=== PATIENT | female | born 1980 | race Hispanic/Latino ===

== ENCOUNTER 2018-03-20 21:21 | Inpatient (IN) | payer BC ==
[~2018-03-20] VITALS: Ht 167.6 cm; Wt 74.6 kg
[~2018-03-20 21:21] MED LIST: ULTRAM50 MG PO
--- NOTE | 2018-03-21 01:00 | NUR ---
PATIENT'S IV SITE IN LEFT AC APPEARS INFILTRATED. MULTIPLE ATTEMPTS FOR NEW IV SITE BY MYSELF AND ALEXSANDER ESTEVEZ FROM THE ED. SUCCESSFUL SITE IN RIGHT AC IS PAINFUL AND RED, BUT DRAWS BLOOD EASILY AND DOES NOT APPEAR INFILTRATED. MARK ESTEVEZ, VICE PRESIDENT TAX REPOSITIONED IV AND PATIENT REPORTS RELIEF. WARM BLANKET APPLIED TO SITE. PATIENT DENIES ANY PAIN OR NAUSEA. ABD IS SOFT, TENDER IN RLQ WITH PALPATION. BOWEL SOUNDS ACTIVE. PATIENT'S IS IN THE ROOM AND HAS BEEN PROVIDED WITH BEDDING AND ORIENTED TO THE UNIT. PATIENT IS NPO AT THIS TIME. DENIES ANY OTHER NEEDS. CALL LIGHT IN REACH.
--- NOTE | 2018-03-21 03:00 | NUR ---
PATIENT APPEARS TO BE SLEEPING. RR 16. FAMILY IN ROOM. IV INFUSING PER ORDER, SITE WNL.
--- NOTE | 2018-03-21 04:00 | NUR ---
PATIENT UP TO THE BATHROOM. SBA. APPEARS STEADY ON HER FEET. PATIENT BACK TO BED. DENIES PAIN. IV FLUIDS PER ORDER, SITE WNL.
--- NOTE | 2018-03-21 05:00 | NUR ---
PATIENT REPORTS 2/10 AND REQUEST PRN PAIN MEDS. EDUCATED PATIENT ABOUT PAIN SCALE AND PATIENT CHANGED SCORE TO 4/10. PRN DILAUDID PROVIDED. PATIENT DENIES NAUSEA. IV SITE WNL, NO PAIN. FLUIDS INFUSING. CALL LIGHT IN REACH. FAMILY IN ROOM.
--- NOTE | 2018-03-21 06:26 | NUR ---
PATIENT ARRIVED TO THE FLOOR AROUND 0100. PAIN WELL CONTROLLED WITH PRN DILAUDID X1. NO NAUSEA. URINE OUTPUT QS. VS STABLE. IV FLUIDS PER ORDER. FAMILY IN ROOM. PATIENT CALLS APPROPRIATELY. SBA.
--- NOTE | 2018-03-21 07:38 | NUR ---
PT AWAKE, ALERT AND ORIENTED X3. PT REPORTING ABD PAIN IS TOLETABLE AT THIS TIME. PT DENIES NEED TO VOID. PERSONAL SUPPLIES AND CALL LIGHT WITHIN REACH OF PT.
--- NOTE | 2018-03-21 08:44 | NUR ---
PATIENT IN BED RESTING. SHE IS NPO FOR NOW. FAMILY IN ROOM. CALL LIGHT IN REACH. NO FUTHER NEEDS AT THIS TIME.
--- NOTE | 2018-03-21 10:51 | NUR ---
PATIENT DID SHOWER WITH HIBBA CLEANSE FOR SURGERY. SHE REFUSED LINEN CHANGE. PATIENT RESTING RIGHT NOW. CALL LIGHT IN REACH. NO FURTER NEEDS AT THIS TIME.
--- NOTE | 2018-03-21 10:58 | NUR ---
PT AWAKE, SITTING UP IN BED VISITING WITH . PT REPORTS PAIN IS TOLERABLE IN ABD. PERSONAL SUPPLIES AND CALL LIGHT WITHIN REACH OF PT. NO NEEDS AT THIS TIME.
--- NOTE | 2018-03-21 11:05 | NUR ---
MED REC COMPLETE
--- NOTE | 2018-03-21 11:24 | HP ---
[facility] [address], [place] [address] Signed ADMISSION DATE: 03/20/2018 REASON FOR ADMISSION: Acute cholecystitis. HISTORY OF PRESENT ILLNESS: This very pleasant 37-year-old woman is accompanied by her . They have limited East [place]orese and a translating computer device was used (per hospital contract) for our visit. The patient presented to the emergency room last night with complaints of right upper abdominal and right flank pain since about Urban. The patient has a long history of episodic pain of a similar type. The patient and her live in [place], [place] and she works for the [employer] there. She had been seen previously in 2016 for similar complaints and evaluation at that time uncertain to me at this point. Her evaluation in the emergency room showed her likely to have acute cholecystitis. On that basis, a gallbladder ultrasound was performed. The ultrasound showed stones and sludge and borderline gallbladder wall thickening. She was admitted to my service with presumed acute calculous cholecystitis. PAST MEDICAL HISTORY: Unremarkable. She has had four child births, one that . Her last menstrual period was 02/27/2018. She uses alcohol occasionally. She does not smoke. She has had D and C in the past. REVIEW OF SYSTEMS: She denies any shortness of breath or chest pain. Her pain is located in the right upper and epigastric area. She has no diarrhea or constipation. No blood per rectum or hematemesis. PHYSICAL EXAMINATION: GENERAL: A pleasant woman, who is accompanied by her . She does not look systemically toxic. NECK: Shows no thyromegaly or cervical adenopathy. Trachea is midline. CHEST: Clear. HEART: Regular without murmur. ABDOMEN: Nondistended. She does have tenderness in the right upper abdomen and the epigastric area, but no palpable mass. There is no ascites. Electronically Signed By: GABINO ALBARADO MD 03/21/18 1124 PATIENT NAME: TYSON STRICKLAND HISTORY AND PHYSICAL DATE OF : 84 REPORT #: [id number] PHYSICIAN: GABINO ALBARADO MD PCP: MAYUR NICHOLS REPORT IS CONFIDENTIAL AND NOT TO BE RELEASED WITHOUT AUTHORIZATION [facility] [address], [place] [address] Signed LABORATORY STUDIES: Show a negative beta-hCG. Chem profile and CBC are normal at this time. Hematocrit 38.6, platelets 204,000. Urinalysis is normal. IMAGING STUDIES: As described, which include ultrasound showing gallstones, sludge, and mild gallbladder wall thickening. ASSESSMENT: Her clinical an ultrasonographic findings are highly consistent with acute calculous cholecystitis. It sounds as though she has had recurrent bouts of similar such symptoms in the past. I discussed the problem with the patient and her via the interpreting device, although they do understand East [place]orese to reasonably good degree anyway. I have recommended cholecystectomy preferred by laparoscopic approach. The risks of bleeding, infection, bile duct injury, need for open procedure and other unforeseen complications were reviewed via the educational sign language interpreter as well. She understands. Her questions have been answered. MD RALEIGH Lao/JULIETTEL /[id number] cc: Ar Ridley MD Copies: AR RIDLEY MD ~ Electronically Signed By: GABINO ALBARADO MD 03/21/18 1124 PATIENT NAME: TYSON STRICKLAND HISTORY AND PHYSICAL DATE OF : 84 REPORT #: [id number] PHYSICIAN: GABINO ALBARADO MD PCP: MAYUR NICHOLS REPORT IS CONFIDENTIAL AND NOT TO BE RELEASED WITHOUT AUTHORIZATION
--- NOTE | 2018-03-21 12:02 | NUR ---
PT RESTING IN BED, RESP EVEN AND NON LABORED. AT BEDSIDE. PERSONAL SUPPLIES AND CALL LIGHT WITHIN REACH OF PT. NO NEEDS AT THIS TIME.
--- NOTE | 2018-03-21 12:04 | NUR ---
PT LAYING IN BED, BY HER SIDE. PT DOES NOT SPEAK GAMBIAN, TRANSLATES. PLEASANT AND HELPFUL, EXTENDED A BLESSING, WILL FOLLOW NEEDED
--- NOTE | 2018-03-21 14:41 | NUR ---
PT LEFT UNIT TO OR.
--- NOTE | 2018-03-21 18:43 | NUR ---
03/21/18 184 [address] 1837- PT ARRIVES TO PACU ASLEEP ON 6 L O2 VIA MASK. PT RESP EVEN AND UNLABORED. PT REACTIVE TO VERBAL STIMULI, BUT QUICKLY FALLS BACK ASLEEP. PT HAS 4 SURGICAL SITES WITH STERI STRIPS IN PLACE.
--- NOTE | 2018-03-21 19:51 | NUR ---
PT RETURNED TO FLOOR FROM SURGERY, PT DROWSY, WEAK FROM SURGERY, PT NOTED TO BE ACTIVELY VOMITING SMALL AMOUNT OF GREEN EMESIS UPON ARRIVAL. PT UNABLE TO TRANSFER SELF FROM STRETCHER TO BED, PT IN BED, IV FLUIDS INFUSING PER EMAR WNL, PT'S AT BEDSIDE ABLE TO TRANSLATE WITH PT, PT GIVEN PRN NAUSEA MEDICATION PER REQUEST, PT DENIES SIGNIFICANT PAIN AT THIS TIME. COOL WASH CLOTH PROVIDED FOR COMFORT, PT RESTING IN BED, EYES CLOSED, BREATHS EVEN, UNLABORED, VSS, AFEBRILE, ORAL CARE PROVIDED PER PT'S REQUEST NO FURTHER REQUESTS AT THIS TIME, CALL LIGHT WITHIN REACH. FALL PRECAUTIONS IN PLACE. FAMILY REMAINS AT BEDSIDE.
--- NOTE | 2018-03-21 20:41 | NUR ---
HELPED PT TO THE BSC AND BACK TO BED. BEDSIDE TABLE AND CALL [facility] ROOM. IN THE ROOM WITH PT.
--- NOTE | 2018-03-21 22:55 | NUR ---
PATIENT'S 4 ABD LAB SITES LOOK GOOD, STERI-STRIPS INTACT WITH SLIGHT BROWN CRUSTY DRY DRAINAGE AT EACH SITE. PATIENT WAS HAVING SOME SLIGHT NAUSEA AFTER THE FIRST DOSE OF 4MG ZOFRAN WAS GIVEN ALTHOUGH IT HAD IMPROVED, SO ANOTHER 4ML IV ZOFRAN WAS GIVEN AND NAUSEA IS GONE. PATIENT WAS ALSO HAVING 5/10 ABD PAIN AT THE LAP SURGICAL SITES WHICH WAS TOTALLY RELIEVED WITH 5MG/IV MORPHINE. AT BEDSIDE AND PATIENT IS GOING TO TRY AND GET SOME REST SCD'S IN PLACE, CALL LIGHT IN REACH, ICE CHIPS GIVEN, NO OTHER NEEDS AT THIS TIME.
--- NOTE | 2018-03-22 00:33 | NUR ---
PATIENT RESTING QUIETLY ON LEFT SIDE, RESPIRATIONS REAGULAR AND EVEN AT A RATE OF 16. SATS 98% SATS ON PULE OX AND HR=82.
--- NOTE | 2018-03-22 01:09 | NUR ---
HELPED PT TO THE BATHROOM AND BACK TO BED. BEDSIDE TABLE AND CALL LIGHT WITHIN REACH. PT ASKED FOR PAIN MEDS. I INFORMED HER RN MOHINDER.
--- NOTE | 2018-03-22 02:03 | NUR ---
BROUGHT PT TWO CUPS OF JELLO PER HER REQUEST.
--- NOTE | 2018-03-22 02:05 | NUR ---
PATIENT WOKE UP AND WAS HAVING 5/10 ABD PAIN. 5MG IV MORPHINE WAS GIVEN AND PAIN WAS GONE, BUT SHE DID GET A LITTLE NAUSEATED AND WAS GIVEN 8MG OF ZOFRAN IV. NAUSEA WAS GETTING BETTER AND PATIENT ASKED FOR MORE ICE CHIPS AND JELLO WHICH WAS GIVEN.
--- NOTE | 2018-03-22 04:00 | NUR ---
PATIENT RESTING QUIETLY ON HER LEFT SIDE, EYES CLOSED RESPIRATIONS REGULAR AND EVEN, PULSE OX O2 SATS AT98% RA AND HR=80. NO S/S OF DISTRESS OR DISCOMFORT.
--- NOTE | 2018-03-22 04:22 | NUR ---
IV PUMP BEEPING. NEW BAG OF IVF HUNG (SEE MAR). IV INPUT RECORDED. CALL LIGHT WITHIN REACH.
--- NOTE | 2018-03-22 06:05 | NUR ---
PATIENT'S PAIN HAS BEEN WELL CONTROLLED WITH 2 DIFFERENT ADMINISTRATIONS OF 5MG IV MORPHINE AND IV ZOFRAN THROUGH THE NIGHT. SCD'S ON. LR AT 125MS/HR AND IV WNL. 4 LAP SURGICAL SITES ALL HAVE STERI-STRIPS WITH DRY CRUSTED BROWN DRAINAGE ON THEM. BOWEL TONES HYPOACTIVE AND LUNGS HAVE BEEN CLEAR. AT BEDSIDE ALL NIGHT. PATIENT HAS EATEN ICE CHIPS, DRANK WATER, AND EATEN JELLO. PAIN HAS NEVER GONE ABOVE 6/10.
--- NOTE | 2018-03-22 06:26 | NUR ---
VITALS DONE AND CHARTED. BEDSIDE TABLE AND CALL LIGHT IN REACH. PT NEEDS NOTHING AT THIS TIME.
--- NOTE | 2018-03-22 07:22 | NUR ---
RECEIVED RPEORT FROM SENIOR DATA WAREHOUSE ARCHITECT RN. PT IN BED AAO WITH AT BEDSIDE, DENIES PAIN OR SOB. CALL LIGHT IN REACH. BREAKFAST ORDERED. NO NEEDS AT THIS TIME.
--- NOTE | 2018-03-22 07:40 | NUR ---
PATIENT RESTING IN BED. IN ROOM. PATIENT'S BREAKFAST ORDERED. CALL LIGHT WITHIN REACH. NO OTHER NEEDS AT THIS TIME
--- NOTE | 2018-03-22 07:45 | NUR ---
MOTRIN ADMINISTERED FOR 4/10 ABDOMINAL PAIN.
--- NOTE | 2018-03-22 07:58 | NUR ---
PT UP TO CHAIR WITH BREAKFAST. BOWEL TONES ACTIVE, STERI STRIPS IN PLACE. SCANT AMOUNT OF SEROSANG DRAINAGE PRESENT. PT DENIES PASSING GAS. NO BM. PLAN FOR WALK AFTER BREAKFAST.
--- NOTE | 2018-03-22 08:20 | NUR ---
PATIENT SITING UP IN CHAIR. AND RN IN ROOM. LINENS CHANGED. PATIENT WALKS OUTSIDE THE ROOM WITH HER . PATIENT BACKS TO ROOM. PATIENT BACKS TO BED. CALL LIGHT WITHIN REACH. NO OTHER NEEDS AT THIS TIME
--- NOTE | 2018-03-22 09:00 | NUR ---
PT OUT AMBULATING SIBLEY X1 LAP. REPORTS PAIN AT 2/10 WITH MOTRIN. DENIES N/V.
--- NOTE | 2018-03-22 09:24 | NUR ---
PATIENT RESTING IN BED. IN ROOM.VITAL SIGNS AND I&O DONE. ICE GIVEN. CALL LIGHT WITHIN REACH. NO OTHER NEEDS AT THIS TIME
--- NOTE | 2018-03-22 11:34 | NUR ---
PT LYING IN BED. DENIES PAIN, N/V, SOB. BOWEL TONES ACTIVE, PT REPORTS PASSING FLATUS. PAIN 0/10. PT SL D/T GOOD PO INTAKE OF WATER. STERISTRIPS WNL. CALL LGT IN REACH. DENIES FURTHER NEEDS.
--- NOTE | 2018-03-22 11:35 | NUR ---
PATIENT RESTING IN BED. IN ROOM. PATIENT'S LUNCH ORDERED. CALL LIGHT WITHIN REACH. NO OTHER NEEDS AT THIS TIME.
--- NOTE | 2018-03-22 12:30 | NUR ---
PT OUT ALBULATING HALLS. REPORTS PAIN 4/10 IN ABDOMEN. PRN PERCOCET ADMINISTERED. DENIES OTHER NEEDS. CALL LGITH IN REACH
--- NOTE | 2018-03-22 13:46 | NUR ---
PATIENT SITING UP IN BED. IN ROOM. VITAL SIGNS AND I&O DONE. CALL LIGHT WITHIN REACH. NO OTHER NEEDS AT THIS TIME
--- NOTE | 2018-03-22 15:00 | NUR ---
PT REPORTING NAUSEA AFTER PAIN MEDICATION WAS ADMINISTERED. 8MG ZOFRAN GIVEN IV. FAMILY IN TO VISIT. DENIES PAIN. REPORTS FLATUS. INCISIONS SAME PREVIOUS ASSESSMENT. BOWEL TONES ACTIVE. CALL LIGHT IN REACH. DENIES FURTHER NEEDS. ANCEF ADMINISTERED.
--- NOTE | 2018-03-22 15:46 | NUR ---
ROUNDED WITH DR ALBARADO. PLAN OF CARE DISCUSSED. PT MEETS CRITERIA FOR DISCHARGE.
[2018-03-22] MEDS ORDERED: IBUPROFEN600 MG PO (15:59)
[2018-03-22] MEDS ORDERED: MAPAP325 MG PO (15:59)
[2018-03-22] MEDS ORDERED: PERCOCET 5-3251 EACH PO (16:00)
--- NOTE | 2018-03-22 16:20 | OR ---
[facility] [address], [place] [address] Signed DATE OF OPERATION: 03/21/2018 SURGEON: Gabino Albarado MD PREOPERATIVE DIAGNOSIS: Acute calculous cholecystitis. POSTOPERATIVE DIAGNOSIS: Acute calculous cholecystitis. PROCEDURES: 1. Laparoscopic cholecystectomy with intraoperative cholangiogram. 2. Surgeon-directed fluoroscopy. ANESTHESIA: General endotracheal, Larry MICHELLE Bucio, and local 20 mL of 0.25% Marcaine with epinephrine. INDICATION: This 37-year-old woman is from [place], [place], and presented to the emergency room late last night with findings consistent with acute cholecystitis. Gallbladder ultrasound confirmed at least one large stone and moderate thickening of the gallbladder. She has been fluid resuscitated, given intravenous antibiotics, and is admitted at this time to undergo cholecystectomy preferred by laparoscopic approach. The risks of bleeding, infection, bile duct injury, need for open procedure, and other unforeseen complications were reviewed in detail. She understands and wished to proceed. FINDINGS: Indeed, the gallbladder was acutely inflamed. There were some adhesions of the infundibulum to the duodenum, but no development of cholecystoduodenal fistula by any means. Cholecystectomy was performed with meticulous care. The gallbladder once excised showed a single large gallstone in the infundibulum and chronic inflammatory change of the mucosa and sludge. Cholangiogram was normal. The liver was normal. DESCRIPTION OF PROCEDURE: The patient was brought to the operating room, given a general endotracheal anesthetic and a preoperative antibiotic Ancef had been given routinely already. Sequential compression device stockings used and heparin was subcutaneously administered. After satisfactory general endotracheal anesthesia, the abdomen was prepared with a Betadine Electronically Signed By: GABINO ALBARADO MD 03/22/18 1620 PATIENT NAME: TYSON STRICKLAND OPERATIVE REPORT DATE OF : 84 REPORT #: [id number] PHYSICIAN: GABINO ALBARADO MD PCP: CINTHYA NICHOLS REPORT IS CONFIDENTIAL AND NOT TO BE RELEASED WITHOUT AUTHORIZATION [facility] [address], [place] [address] Signed solution and draped sterilely. An infraumbilical incision was made and using an open Simon cannula technique, pneumoperitoneum was achieved to a level of 14 mmHg with carbon dioxide gas. Intraabdominal inspection showed no sign of ascites or carcinomatosis. Gallbladder was obscured from view initially. Three additional trocars were placed in usual configuration in the subxiphoid, right midclavicular, and right anterior axillary line. Gallbladder was elevated cephalad and found to be markedly inflamed. There were some adhesions of the infundibulum to the duodenum. These were taken down with sharp dissection only, no cautery at all so as to avoid injury to the duodenum. Once completely freed, the infundibulum was grasped and retracted laterally. Using blunt and electrocautery dissection, the triangle of Calot was dissected free, ultimately identifying well the cystic duct and cystic arterial branches. A clip was applied across gallbladder cystic duct junction and a transverse choledochotomy was made in the cystic duct. Egress of clear bile was noted from the cystic duct. Using the Mitchell type cholangiocatheter, intraoperative cholangiography was undertaken showing free flow of contrast into the biliary tree with prompt emptying into the duodenum. There was no sign of filling defect, bile leak, or other issue. Anatomy was conventional. Catheter was removed and the cystic duct was triply clipped and divided, the gallbladder dissected free in a retrograde fashion using electrocautery. The gallbladder was extracted through the infraumbilical port site without problem, opened on the back table and found to have an inflammatory mucosa, a single large gallstone, and some debris as well. There was no sign of cancer. Irrigation was undertaken in subhepatic space. Excess irrigation fluid was suctioned free. The trocars were removed under direct visualization showing no sign of bleeding. The infraumbilical fascial incision was reapproximated with interrupted 0 Vicryl suture. All wounds were copiously irrigated with saline solution and 20 mL of 0.25% Marcaine with epinephrine was injected locally. The skin was then closed with interrupted 3-0 Vicryl. Steri-Strips were applied. The patient was ultimately extubated and transferred to recovery room in good condition and suffered no complication. Sponge, needle, and instrument counts were reported as correct. MD RALEIGH Lao/MODL /[id number] Electronically Signed By: GABINO ALBARADO MD 03/22/18 1620 PATIENT NAME: TYSON STRICKLAND OPERATIVE REPORT DATE OF : 84 REPORT #: [id number] PHYSICIAN: GABINO ALBARADO MD PCP: CINTHYA NICHOLS REPORT IS CONFIDENTIAL AND NOT TO BE RELEASED WITHOUT AUTHORIZATION [address] [address] Signed cc: MD Cinthya Corona PA Kelly Dean Pridgen, MD Copies: TANJA HALE MD, NICOLETTE LEE PA PRIDGEN, KELLY DEAN MD ~ Electronically Signed By: GABINO ALBARADO MD 03/22/18 1620 PATIENT NAME: TYSON STRICKLAND OPERATIVE REPORT DATE OF : 84 REPORT #: [id number] PHYSICIAN: GABINO ALBARADO MD PCP: CINTHYA NICHOLS REPORT IS CONFIDENTIAL AND NOT TO BE RELEASED WITHOUT AUTHORIZATION
--- NOTE | 2018-03-22 17:30 | NUR ---
PT REPORTED 3/10 PAIN. PRN TYLENOL ADMINISTERED. DISHCARGE INSTRUCTIONS GIVEN WITH VIDEO FIRE ALARM INSTALLER. ALL QUESTIONS AND CONCERNS ADRESSED.
--- NOTE | 2018-03-22 17:33 | NUR ---
PATIENT SITING UP IN CHAIR. VITAL SIGNS DONE BEFORE PATIENT WAS DISCHARGE FROM THE UNIT.
--- NOTE | 2018-03-22 23:14 | DS ---
[facility] [address], [place] [address] Signed ADMISSION DATE: 03/21/2018 DISCHARGE DATE: 03/22/2018 Patient also known as Tyson Tran. REASON FOR ADMISSION: This 37-year-old woman has had recurrent bouts of upper abdominal pain, presents to the emergency room with a week of right upper quadrant and right flank pain, was admitted and was evaluated by Dr. Gimenez including gallbladder ultrasound showing findings consistent with acute cholecystitis with gallstones. PERTINENT PHYSICAL EXAMINATION: GENERAL: Pleasant woman, did not look systemically toxic. CHEST: Clear. HEART: Regular without murmur. ABDOMEN: Nondistended. There is tenderness in the right upper abdomen. LABORATORY STUDIES: Showed beta-hCG, chem profile, and CBC were normal. Urinalysis normal. HOSPITAL COURSE: She is fluid resuscitated, given intravenous antibiotics, and on March 21, 2018, underwent laparoscopic cholecystectomy with intraoperative cholangiogram. She was found to have acutely inflamed gallbladder and adhesions of the infundibulum to the duodenum. With great care, these were taken down without use of electrocautery. Her cholangiogram was normal. Postoperatively, she had prompt recovery from her preoperative pain and by the time of discharge is ambulating well, tolerating a regular diet, and had wounds that are healing well. The patient wishes to have four weeks in convalescence from her work at . Paperwork has been arranged for her. DISCHARGE MEDICATIONS: Include: 1. Motrin 600 mg p.o. q.6 hours p.r.n. pain #60. 2. Tylenol 650 mg p.o. q.6 hours as needed for pain #30. 3. Percocet 5/325, one p.o. q.4 hours p.r.n. pain #10. FOLLOW UP PLAN: Electronically Signed By: GABINO ALBARDAO MD 03/22/18 2314 PATIENT NAME: TYSON STRICKLAND DISCHARGE SUMMARY DATE OF : 84 REPORT #: [id number] PHYSICIAN: GABINO ALBARADO MD PCP: MAYUR NICHOLS REPORT IS CONFIDENTIAL AND NOT TO BE RELEASED WITHOUT AUTHORIZATION [facility] [address], [place] [address] Signed She will call on Sunday to make an appointment to see me back in a month or so. If she has problems in the meantime, she will let us know. She is permitted to shower tomorrow. She is encouraged to walk on a daily basis, but to lift no more than 20 pounds for the next four weeks. MD RALEIGH Lao/SUZY /[id number] Copies: ~ Electronically Signed By: GABINO ALBARADO MD 03/22/18 2314 PATIENT NAME: TYSON STRICKLAND DISCHARGE SUMMARY DATE OF : 84 REPORT #: [id number] PHYSICIAN: GABINO ALBARADO MD PCP: MAYUR NICHOLS REPORT IS CONFIDENTIAL AND NOT TO BE RELEASED WITHOUT AUTHORIZATION
== END 2018-03-22 17:35 | disposition home or self-care (01) | DRG 419 ==
LOC: ED 21:21 → MS 21:23
PROVIDERS: ADMIT Surgery
PROC: BF101ZZ Fluoroscopy of Bile Ducts using Low Osmolar Contrast (ICD-10-PCS; 2018-03-21)
PROC: 0FT44ZZ Resection of Gallbladder, Percutaneous Endoscopic Approach (ICD-10-PCS; principal; 2018-03-21 15:30)
DX: K80.00 Calculus of gallbladder with acute cholecystitis without obstruction (principal)
CPT/HCPCS: 00790; 74300; 76705; 80053; 81001; 83690; 84703; 85025; 96361; 96374; 96375; 96376; 99285-25; G0378; J0690; J1170; J1644; J1885; J2250; J2270; J2405; J2704; J2765; J3010; J7030; J7120; Q9967